=== PATIENT | female | born 1990 | race Caucasian/White ===

== ENCOUNTER 2018-11-27 21:50 | Emergency (ER) | payer SELFPAY, OTHER ==
[2018-11-28] MEDS: ACETAMINOPHEN 325 MG TAB PO (02:39)
== END 2018-11-28 04:32 | disposition home or self-care (01) ==
LOC: FTE 21:50
DX: S30.1XXA Contusion of abdominal wall, initial encounter (principal); S30.0XXA Contusion of lower back and pelvis, initial encounter; S10.93XA Contusion of unspecified part of neck, initial encounter; V49.50XA Passenger injured in collision with unspecified motor vehicles in traffic accident, initial encounter
CPT/HCPCS: 71045; 72040; 72100; 99284-25